=== PATIENT | female | born 1995 | race American Indian/Alaskan Native ===

== ENCOUNTER 2022-01-31 11:11 | Emergency (ER) | payer SELFPAY ==
[2022-01-31 11:42] VITALS: BP 104/58
[2022-01-31 12:27] LABS: Bacteria,Urine 1+ /HPF (Negative); Bilirubin,Urine NEG (Negative); Blood,Urine NEG (Negative); Color,Urine Yellow (Yellow); Mucus,Urine 2+ /HPF; Protein,Urine <15 mg/dL mg/dL (Negative)
--- NOTE | 2022-01-31 15:22 | Emergency Department Report ---
ED Female HPI - General Chief complaint: Urogenital-Female Stated complaint: ABD PAIN Source: patient Mode of arrival: Ambulatory Limitations: No Limitations - History of Present Illness Initial comments: 26-year-old female presents to the ED complaining dysuria with vaginal discharge. Patient states that she had unprotected sex . She states last normal menstrual cycle was 1 month ago. Did states having a menstrual cycle this this month but states that the cycle was abnormal. Patient denies any abdominal pain at present. Patient denies any fever or chills at present. Patient is alert and oriented x3. No acute distress noted. No ill appearance noted. MD Complaint: dysuria Onset/Timin -: days(s) Severity: mild Consistency: intermittent Improves with: none Worsens with: none - Related Data Allergies Allergy/AdvReac Type Severity Reaction Status Date / Time No Known Allergies Allergy Verified 01/31/22 11:34 ED Review of Systems ROS: Stated complaint: ABD PAIN Other details as noted in HPI Constitutional: denies: chills, fever Eyes: denies: eye pain, eye discharge, vision change ENT: denies: ear pain, throat pain Respiratory: denies: cough, shortness of breath, wheezing Cardiovascular: denies: chest pain, palpitations Endocrine: no symptoms reported Gastrointestinal: denies: abdominal pain, nausea, diarrhea Genitourinary: dysuria, discharge. denies: urgency Musculoskeletal: denies: back pain, joint swelling, arthralgia Skin: denies: rash, lesions Neurological: denies: headache, weakness, paresthesias Psychiatric: denies: anxiety, depression Hematological/Lymphatic: denies: easy bleeding, easy bruising ED Past Medical Hx - Past Medical History Previous Medical History?: No - Surgical History Past Surgical History?: No - Social History Smoking Status: Never Smoker Substance Use Type: Alcohol, Marijuana ED Physical Exam - General Limitations: No Limitations General appearance: alert, in no apparent distress - Head Head exam: Present: atraumatic, normocephalic - Eye Eye exam: Present: normal appearance - ENT ENT exam: Present: mucous membranes moist - Neck Neck exam: Present: normal inspection - Respiratory Respiratory exam: Present: normal lung sounds bilaterally. Absent: respiratory distress - Cardiovascular Cardiovascular Exam: Present: regular rate, normal rhythm. Absent: systolic murmur, diastolic murmur, rubs, gallop - GI/Abdominal GI/Abdominal exam: Present: soft, normal bowel sounds - Extremities Exam Extremities exam: Present: normal inspection - Back Exam Back exam: Present: normal inspection - Neurological Exam Neurological exam: Present: alert, oriented X3 - Psychiatric Psychiatric exam: Present: normal affect, normal mood - Skin Skin exam: Present: warm, dry, intact, normal color. Absent: rash ED Course Vital Signs 01/31/22 11:40 Temperature 98.8 F Pulse Rate 67 Respiratory 18 Rate Blood Pressure 104/58 [Right] O2 Sat by Pulse 100 Oximetry ED Medical Decision Making - Medical Decision Making 26-year-old female presents to the ED complaining dysuria with vaginal discharge. Patient states that she had unprotected sex . She states last normal menstrual cycle was 1 month ago. Did states having a menstrual cycle this this month but states that the cycle was abnormal. Patient denies any abdominal pain at present. Patient denies any fever or chills at present. Patient is alert and oriented x3. No acute distress noted. No ill appearance noted. Physical examination is unremarkable. Rechecked the patient is resting quietly quietly and comfortable and feeling better. I discussed the results of diagnostic study, my clinical impression and the plan for further treatment with the patient. Patient agrees with plan and discharge at this present time. All question addressed. I have given the patient instruction regarding a diagnosis ,expectation ,follow- up and return precaution. I explained to the patient that emergent condition may arise and to return to the ED for new worsen and any new persisting condition. I have explained the importance of following up with the primary care physician or referral physician listed below has instructed. The patient verbalized understanding of discharge instruction. Abnormal Lab Results 01/31/22 01/31/22 14:20 Unknown Urine Color Yellow Urine Turbidity Clear Urine pH 7.0 Ur Specific [place] 1.023 Urine Protein <15 mg/dl Urine Glucose (UA) Neg Urine Ketones Neg Urine Blood Neg Urine Nitrite Neg Urine Bilirubin Neg Urine Urobilinogen 4.0 Ur Leukocyte Esterase Neg Urine WBC (Auto) 5.0 Urine RBC (Auto) 11.0 U Epithel Cells (Auto) 19.0 H Urine Bacteria (Auto) 1+ Urine Mucus 2+ Urine HCG, Qual Positive A Critical care attestation.: If time is entered above; I have spent that time in minutes in the direct care of this critically ill patient, excluding procedure time. ED Disposition Clinical Impression: Qualifiers: Weeks of gestation: less than 8 weeks Qualified Code(s): Z3A.01 - Less than 8 weeks gestation of Disposition: HOME / SELF CARE / HOMELESS Is pt being admited?: No Does the pt Need Aspirin: No Condition: Stable Instructions: and Travel, How a Baby Grows During Additional Instructions: Take [id number] vitamin Follow-up with [facility] Return to ED for any worsening symptoms Referrals: [facility] [Provider Group] - 3-5 Days Forms: Work/School Release Form(ED) Time of Disposition: 16:09
[2022-01-31 15:48] LABS: HCG Qualitative,Urine Positive (Negative)
== END 2022-01-31 16:31 | disposition home or self-care (01) ==
LOC: ED 11:11
DX: O26.891 Other specified pregnancy related conditions, first trimester (principal); Z3A.01 Less than 8 weeks gestation of pregnancy
CPT/HCPCS: 81001; 81025; 87086; 87210; 87591; 99283

== ENCOUNTER 2022-04-03 21:13 | Emergency (ER) | payer OTHER ==
[2022-04-04] MEDS ORDERED: IBUPROFEN 800 MG TAB PO ONE (10:27)
[2022-04-04] MEDS ORDERED: SODIUM CHLORIDE 0.9% 1000 ML 1,000 ML IV ONE (10:28)
[2022-04-04] MEDS ORDERED: cefTRIAXone/NS 1 GM/50 ML 1 GM/50 ML BAG IV ONE (10:28)
--- NOTE | 2022-04-04 10:29 | Emergency Department Report ---
ED Female HPI - General Chief complaint: Fever Stated complaint: FEVER/COUGH/BODY ACHES Time Seen by Provider: 04/04/22 09:48 Source: patient Mode of arrival: Ambulatory Limitations: No Limitations - History of Present Illness Initial comments: Ms. Banda is a 26-year-old female that comes to the emergency room complaining of fever and chills. She associates this with her low back pain. Patient is 14 weeks . She has seen an OB in the last 2 weeks she states. She had a normal ultrasound. She cannot recall her last menstrual cycle. She denies any vaginal bleeding. Denies any discharge. She is ambulatory nontoxic [id number] on exam in [facility] Complaint: other Are you Now?: Yes Associated Symptoms: abdominal pain. denies: vaginal discharge, vaginal bleeding, nausea/vomiting, fever/chills (Suprapubic and back) - Related Data Sexually active: Yes : 1 Para: 0 Previous Rx's Medication Instructions Recorded Last Taken Type Amoxicillin [Trimox CAP] 500 mg PO BID #20 capsule 04/04/22 Unknown Rx Fluconazole [Diflucan TAB] 100 mg PO QDAY #2 tablet 04/04/22 Unknown Rx Allergies Allergy/AdvReac Type Severity Reaction Status Date / Time No Known Allergies Allergy Verified 01/31/22 11:34 ED Review of Systems ROS: Stated complaint: FEVER/COUGH/BODY ACHES Other details as noted in HPI Comment: All other systems reviewed and negative ED Past Medical Hx - Past Medical History Previous Medical History?: No - Surgical History Past Surgical History?: No - Family History Family history: no significant - Social History Smoking Status: Never Smoker Substance Use Type: Alcohol, Marijuana - Medications Home Medications: Home Medications Medication Instructions Recorded Confirmed Last Taken Type Amoxicillin [Trimox CAP] 500 mg PO BID #20 capsule 04/04/22 Unknown Rx Fluconazole [Diflucan TAB] 100 mg PO QDAY #2 tablet 04/04/22 Unknown Rx ED Physical Exam - General Limitations: No Limitations General appearance: alert, in no apparent distress - Head Head exam: Present: atraumatic, normocephalic - Eye Eye exam: Present: normal appearance - ENT ENT exam: Present: mucous membranes moist - Neck Neck exam: Present: normal inspection - Respiratory Respiratory exam: Present: normal lung sounds bilaterally. Absent: respiratory distress - Cardiovascular Cardiovascular Exam: Present: regular rate, normal rhythm. Absent: systolic murmur, diastolic murmur, rubs, gallop - GI/Abdominal GI/Abdominal exam: Present: soft, normal bowel sounds - Extremities Exam Extremities exam: Present: normal inspection - Back Exam Back exam: Present: normal inspection - Neurological Exam Neurological exam: Present: alert, oriented X3 - Psychiatric Psychiatric exam: Present: normal affect, normal mood - Skin Skin exam: Present: warm, dry, intact, normal color. Absent: rash ED Course Vital Signs 04/03/22 21:22 Temperature 101.6 F H Pulse Rate 116 H Respiratory 18 Rate Blood Pressure 116/69 O2 Sat by Pulse 97 Oximetry ED Medical Decision Making - Medical Decision Making Vital Signs 04/03/22 21:22 Temperature 101.6 F H Pulse Rate 116 H Respiratory 18 Rate Blood Pressure 116/69 O2 Sat by Pulse 97 Oximetry Lab Results 04/04/22 Range/Units Unknown Urine Color Yellow (Yellow) Urine Turbidity Cloudy (Clear) Urine pH 6.0 (5.0-7.0) Ur Specific [place] 1.019 (1.003-1.030) Urine Protein <15 mg/dl (Negative) mg/dL Urine Glucose (UA) Neg (Negative) mg/dL Urine Ketones Neg (Negative) mg/dL Urine Blood Sm (Negative) Urine Nitrite Neg (Negative) Urine Bilirubin Neg (Negative) Urine Urobilinogen 4.0 (<2.0) mg/dL Ur Leukocyte Esterase Lg (Negative) Urine WBC (Auto) 13.0 H (0.0-6.0) /HPF Urine RBC (Auto) 13.0 (0.0-6.0) /HPF U Epithel Cells (Auto) 69.0 H (0-13.0) /HPF Urine Bacteria (Auto) 2+ (Negative) /HPF Urine Mucus 3+ /HPF Urine Yeast (Budding) Few /HPF UA NOTED Patient medicated with normal saline 1 L, a gram of Rocephin and with Tylenol. She is nontoxic on exam in fact she is eating a [employer] biscuit with chicken and cheese. Patient has had no vomiting while in the emergency room. She is ambulatory, nontoxic [id number]. Repeat temperature per the provider 98. Heart rate 90. Patient being discharged home with discharge plan of care including diet, medication, activity, follow-up. She understands that her [facility] needs to check her urine to make sure this is gone away. - Differential Diagnosis AB/ECTOPIC/UTI Critical care attestation.: If time is entered above; I have spent that time in minutes in the direct care of this critically ill patient, excluding procedure time. ED Disposition Clinical Impression: UTI (urinary tract infection) Qualifiers: Urinary tract infection type: site unspecified Hematuria presence: with hematuria Qualified Code(s): N39.0 - Urinary tract infection, site not specified; R31.9 - Hematuria, unspecified Qualifiers: Weeks of gestation: 14 weeks Qualified Code(s): Z3A.14 - 14 weeks gestation of Disposition: HOME / SELF CARE / HOMELESS Is pt being admited?: No Does the pt Need Aspirin: No Condition: Stable Instructions: Urinary Tract Infection, Adult Additional Instructions: Medication as ordered today until gone. Drink a lot of water. Tylenol can be used for pain. Follow-up with your [facility] CL[facility], they need to repeat your urinalysis to make sure this is gotten better. Prescriptions: Fluconazole [Diflucan TAB] 100 mg PO QDAY #2 tablet Amoxicillin [Trimox CAP] 500 mg PO BID #20 capsule Referrals: PRIMARY CARE, [Primary Care Provider] - 3-5 Days ARIELLE EL MD [Staff Physician] - 3-5 Days Forms: Work/School Release Form(ED) Time of Disposition: 11:08
[2022-04-04 10:56] LABS: Bilirubin,Urine NEG (Negative); Blood,Urine SM (Negative); Color,Urine Yellow (Yellow); Protein,Urine <15 mg/dL mg/dL (Negative)
[2022-04-04 11:04] LABS: Bacteria,Urine 2+ /HPF (Negative); Mucus,Urine 3+ /HPF
[2022-04-04] MEDS ORDERED: ACETAMINOPHEN 500 MG TAB PO ONE (11:11)
[2022-04-04 12:24] VITALS: BP 118/78
== END 2022-04-04 12:28 | disposition home or self-care (01) ==
LOC: ED 21:13
DX: O23.41 Unspecified infection of urinary tract in pregnancy, first trimester (principal); Z3A.14 14 weeks gestation of pregnancy; F10.20 Alcohol dependence, uncomplicated; F12.90 Cannabis use, unspecified, uncomplicated
CPT/HCPCS: 81001; 87086; 96365; 99283; J0696; J7030